=== PATIENT | female | born 1980 | race Caucasian/White ===

== ENCOUNTER 2024-06-03 05:55 | Emergency (ER) | payer SELFPAY ==
[2024-06-03] MEDS ORDERED: Amoxicillin/Potassium Clav 875 MG TAB ONE (06:25)
[2024-06-03] MEDS ORDERED: Bupivacaine PF 0.5% 30 ML VIAL ONE (06:26)
[2024-06-03] MEDS ORDERED: Lidocaine 1% w/Epinephrine 1:100K 20 ML VIAL ONE (06:26)
== END 2024-06-03 06:48 | disposition home or self-care (01) ==
LOC: MADERS 05:55
DX: K04.7 Periapical abscess without sinus (principal); F17.210 Nicotine dependence, cigarettes, uncomplicated
CPT/HCPCS: 41800; 96372; J0665